=== PATIENT | male | born 1940 | race Caucasian/White ===

== ENCOUNTER 2023-09-22 08:56 | Emergency (ER) | payer MEDICARE ==
[~2023-09-22] VITALS: Ht 170.2 cm; Wt 83.7 kg
[2023-09-22 10:07] LABS: Urine Bacteria FEW /hpf (None Seen); Urine Blood 3+ /uL (Negative); Urine Clarity HAZY (Clear); Urine Color Red (Yellow); Urine Mucus FEW (None Seen); Urine Protein, UAD 2+ (Negative); Urine Specific Gravity 1.023 (1.001-1.035); Urine Urobilinogen Normal (Negative); Urine WBC 99 /hpf (0 - 3); Urine pH 5.5 (5.0-8.0)
[2023-09-22] MEDS ORDERED: CIPR-173 PO (11:10)
[2023-09-22] MEDS ORDERED: PANT40TA2 PO (11:19)
[2023-09-22 11:21] VITALS: BP 130/90; PULSE 77; RESP 20; TEMP 98.7; O2SAT 93
== END 2023-09-22 11:24 | disposition home or self-care (01) ==
LOC: ER 08:56
DX: N39.0 Urinary tract infection, site not specified (principal); K21.9 Gastro-esophageal reflux disease without esophagitis; Z86.73 Personal history of transient ischemic attack (TIA), and cerebral infarction without residual deficits; Z79.2 Long term (current) use of antibiotics
CPT/HCPCS: 81001